=== PATIENT | female | born 1995 | race Two or more races ===

== ENCOUNTER 2018-07-14 18:16 | Emergency (ER) | payer MEDICAID ==
[~2018-07-14] VITALS: Ht 157.5 cm; Wt 49.0 kg
[2018-07-14 20:07] LABS: Urine Bacteria FEW /hpf (None Seen); Urine Blood Negative /uL (Negative); Urine Mucus FEW (None Seen); Urine Specific Gravity 1.018 (1.001-1.035); Urine WBC 23 /hpf (0 - 5)
[2018-07-14] MEDS ORDERED: HYDROcodone-ACET 10/325MG TAB PO ONE (21:00)
[2018-07-14] MEDS ORDERED: LEVOFLOXACIN 250 MG TAB PO ONE (21:00)
[2018-07-14 23:10] VITALS: BP 107/67
== END 2018-07-14 23:10 | disposition home or self-care (01) ==
LOC: ER 18:16
DX: S33.5XXA Sprain of ligaments of lumbar spine, initial encounter (principal); M79.10 Myalgia, unspecified site; N39.0 Urinary tract infection, site not specified; X58.XXXA Exposure to other specified factors, initial encounter; Y93.89 Activity, other specified; Y99.8 Other external cause status; Y92.89 Other specified places as the place of occurrence of the external cause
CPT/HCPCS: 72131; 81001